=== PATIENT | female | born 1990 | race African-American/Black ===

== ENCOUNTER 2016-10-09 20:52 | Emergency (ER) | payer SELFPAY ==
[2016-10-09] MEDS ORDERED: ONDANSETRON 4 MG TAB.RAPDIS PO ONE (22:41)
--- NOTE | 2016-10-09 22:41 | ER Document Report ---
ED Medical Screen (RME) - General Stated Complaint: LIGHT HEADED,HEADACHE,ABDOMINAL PAIN Notes: 26 year old female, c/o 1 week of feeling light headed with standing, occasional mild headache. She states she has mild lower abdominal pain that started today, she started taking iron 3 days ago for "low iron" although she denied knowledge of history of anemia. She states she is currently on her menstrual cycle. She has never been transfused. TRAVEL OUTSIDE OF THE [place] IN LAST 30 DAYS: No - Related Data Allergies/Adverse Reactions: No Known Allergies Allergy (Unverified 06/07/15 13:08) Past Medical History - Immunizations Hx Diphtheria, Pertussis, Tetanus Vaccination: Yes Physical Exam - Vital signs Vitals: Temp Pulse Resp BP Pulse Ox 98.0 F 60 22 H 127/67 H 97 10/09/16 22:30 10/09/16 22:30 10/09/16 22:30 10/09/16 22:30 10/09/16 22:30 - General General appearance: Appears well In distress: None - Cardiovascular Rhythm: Regular. No: Tachycardia Heart sounds: Normal auscultation, S1 appreciated, S2 appreciated Course - Vital Signs Vital signs: Temp Pulse Resp BP Pulse Ox 98.0 F 60 22 H 127/67 H 97 10/09/16 22:30 10/09/16 22:30 10/09/16 22:30 10/09/16 22:30 10/09/16 22:30
[2016-10-10 02:22] LABS: ABSOLUTE BASOPHILS # (AUTO) 0.1 10^3/uL (0.0-0.2); ABSOLUTE EOSINOPHILS # (AUTO) 0.5 10^3/uL (0.0-0.6); ABSOLUTE LYMPHOCYTES (AUTO) 3.1 10^3/uL (0.5-4.7); ABSOLUTE MONOCYTES (AUTO) 0.6 10^3/uL (0.1-1.4); ABSOLUTE NEUT (AUTO) 4.8 10^3/uL (1.7-8.2); BASOPHILS % (AUTO) 0.7 % (0-2); EOSINOPHILS % (AUTO) 5.3 % (0-6); HEMATOCRIT 35.2 % (36.0-47.0); HEMOGLOBIN 11.8 g/dL (12.0-15.5); HGB HCT DIFFERENCE 0.2; MEAN CORPUSCULAR HEMOGLOBIN 26.6 pg (27.0-33.4); MEAN CORPUSCULAR HGB CONC 33.5 g/dL (32.0-36.0); MEAN CORPUSCULAR VOLUME 80 fl (80-97); MONOCYTES % (AUTO) 6.3 % (3-13); RED BLOOD COUNT 4.42 10^6/uL (3.72-5.28); RED CELL DISTRIBUTION WIDTH 15.5 % (11.5-14.0); SEGMENTED NEUTROPHILS % (AUTO) 53.7 % (42-78)
[2016-10-10] MEDS ORDERED: NORMAL SALINE 1000 ML 1,000 ML IV ONE (02:28)
[2016-10-10 02:38] LABS: ALANINE AMINOTRANSFERASE 29 U/L (9-52); ALKALINE PHOSPHATASE 68 U/L (38-126); ANION GAP 14 (5-19); APPEARANCE,URINE SLIGHTLY-CLOUDY; ASPARTATE AMINO TRANSFERASE 15 U/L (14-36); BILIRUBIN,TOTAL 0.2 mg/dL (0.2-1.3); BILIRUBIN,URINE NEGATIVE (NEGATIVE); BLOOD UREA NITROGEN 8 mg/dL (7-20); CALCIUM 9.5 mg/dL (8.4-10.2); CARBON DIOXIDE 22 mmol/L (22-30); CHLORIDE 107 mmol/L (98-107); CREATININE RESULT 0.82 mg/dL (0.52-1.25); GLUCOSE 93 mg/dL (75-110); GLUCOSE, URINE NEGATIVE (NEGATIVE); KETONES,URINE NEGATIVE (NEGATIVE); LEUKOCYTE ESTERASE,URINE NEGATIVE (NEGATIVE); NITRITE,URINE NEGATIVE (NEGATIVE); POTASSIUM 3.8 mmol/L (3.6-5.0); PROTEIN,URINE 30 mg/dL (NEGATIVE); SODIUM 142.5 mmol/L (137-145); URINE SPECIFIC GRAVITY 1.034; UROBILINOGEN,URINE NEGATIVE mg/dL (<2.0)
[2016-10-10] MEDS ORDERED: ACETAMINOPHEN 325 MG TABLET PO ONE (02:55)
--- NOTE | 2016-10-10 05:45 | ER Document Report ---
ED General - General Chief Complaint: Abdominal Pain Stated Complaint: LIGHT HEADED,HEADACHE,ABDOMINAL PAIN Notes: 26 year old female, c/o 1 week of occasionally feeling light headed with standing, occasional mild headache. She also states her ears have been intermittently bothering her. She states she has mild lower abdominal pain that started today, she started taking iron 3 days ago for "low iron" although she denied knowledge of history of anemia. She denies any fevers, nausea, vomiting, chest pain, diarrhea, vaginal discharge. She states she is currently on her menstrual cycle. She has never been transfused. TRAVEL OUTSIDE OF THE [place] IN LAST 30 DAYS: No - Related Data Allergies/Adverse Reactions: No Known Allergies Allergy (Unverified 06/07/15 13:08) Past Medical History - General Information source: Patient - Social History Smoking Status: Never Smoker Chew tobacco use (# tins/day): No Frequency of alcohol use: Rare Drug Abuse: None Lives with: Family Family History: None Patient has suicidal ideation: No Patient has homicidal ideation: No - Medical History Medical History: Negative Renal/ Medical History: Denies: Hx Peritoneal Dialysis Surgical Hx: Negative - Immunizations Hx Diphtheria, Pertussis, Tetanus Vaccination: Yes Review of Systems - Review of Systems Constitutional: See HPI EENT: See HPI Cardiovascular: See HPI Respiratory: No symptoms reported Gastrointestinal: See HPI Genitourinary: No symptoms reported Female Genitourinary: No symptoms reported Musculoskeletal: No symptoms reported Skin: No symptoms reported Hematologic/Lymphatic: No symptoms reported Neurological/Psychological: See HPI Physical Exam - Vital signs Vitals: Temp Pulse Resp BP Pulse Ox 98.0 F 60 22 H 127/67 H 97 10/09/16 22:30 10/09/16 22:30 10/09/16 22:30 10/09/16 22:30 10/09/16 22:30 Interpretation: Normal - General General appearance: Appears well, Alert In distress: None - HEENT Head: Normocephalic, Atraumatic Eyes: Normal Conjunctiva: Normal Extraocular movements intact: Yes Eyelashes: Normal Pupils: PERRL Ears: Normal External canal: Other - Large amount of cerumen at the back of the ear canals bilaterally Sinus: Normal Nasal: Normal Mouth/Lips: Normal Mucous membranes: Normal Pharynx: Normal - Respiratory Respiratory status: No respiratory distress Chest status: Nontender Breath sounds: Normal. No: Decreased air movement, Wheezing Chest palpation: Normal - Cardiovascular Rhythm: Regular. No: Tachycardia Heart sounds: Normal auscultation, S1 appreciated, S2 appreciated Murmur: No - Abdominal Inspection: Normal Distension: No distension Bowel sounds: Normal Tenderness: Nontender. No: Tender - Completely soft, benign, and nontender abdomen, Guarding Organomegaly: No organomegaly - Back Back: Normal, Nontender. No: Tender - Extremities General upper extremity: Normal inspection, Nontender, Normal color, Normal ROM , Normal temperature General lower extremity: Normal inspection, Nontender, Normal color, Normal ROM , Normal temperature, Normal weight bearing. No: Ciera's sign - Neurological Neuro grossly intact: Yes Cognition: Normal Orientation: AAOx4 Hensley Coma Scale Eye Opening: Spontaneous Adam Coma Scale Verbal: Oriented Hensley Coma Scale Motor: Obeys Commands Adam Coma Scale Total: 15 Speech: Normal Motor strength normal: LUE, RUE, LLE, RLE Sensory: Normal - Psychological Associated symptoms: Normal affect, Normal mood - Skin Skin Temperature: Warm Skin Moisture: Dry Skin Color: Normal Course - Re-evaluation Re-evalutation: Well-appearing patient, obese, completely nontender abdomen, patient stands and ambulates without any difficulty, no hypotension, tachycardia, or fever. Normal neurological exam. CBC shows very mild normocytic anemia, chemistry unremarkable, urine shows elevated specific gravity. Patient given IV fluids, after this she states she feels much better. Asked patient about hydration, she states she drinks some tea and coffee constantly. Advised better hydration , patient advised on removing earwax from Q-tip impaction. Patient states that she wants some ibuprofen before she leaves although she states that the Tylenol resolved her headache from earlier (she began complaining of a headache after she got to the room). Advised follow-up with primary care. Discussed return precautions. Patient states understanding and agreement. - Vital Signs Vital signs: Temp Pulse Resp BP Pulse Ox 97.5 F 60 16 113/73 100 10/10/16 06:25 10/10/16 06:25 10/10/16 06:25 10/10/16 06:25 10/10/16 06:25 - Laboratory Result Diagrams: 10/10/16 02:04 10/10/16 02:04 Laboratory results interpreted by me: 10/10/16 10/10/16 02:04 02:04 Hgb 11.8 L Hct 35.2 L MCH 26.6 L RDW 15.5 H Urine Protein 30 H Discharge - Discharge Clinical Impression: Generalized weakness, Lightheadedness Condition: Stable Disposition: HOME, SELF-CARE Additional Instructions: You have very mild anemia, you are dehydrated. He has begun rehydration, continue rehydration, avoid highly caffeinated and carbonated drinks if possible. Follow-up with primary care. Return to emergency department for any concerning or worsening symptoms including passing out, severe abdominal pain, vomiting, etc. Forms: Return to Work
[2016-10-10] MEDS ORDERED: IBUPROFEN 600 MG TABLET PO ONE (06:01)
[2016-10-10 06:27] VITALS: BP 113/73
== END 2016-10-10 06:25 | disposition home or self-care (01) ==
LOC: ER 20:52
DX: D64.9 Anemia, unspecified (principal); R42 Dizziness and giddiness; R53.1 Weakness; R51 Headache; R10.30 Lower abdominal pain, unspecified; H61.23 Impacted cerumen, bilateral; E66.9 Obesity, unspecified; Z68.42 Body mass index [BMI] 45.0-49.9, adult
CPT/HCPCS: 99284; 96360; 36415; 85025; 81025; 80053; 81001; J7030